=== PATIENT | male | born 1955 | race Caucasian/White ===

== ENCOUNTER 2018-03-14 10:19 | Emergency (ER) | payer OTHER, SELFPAY ==
[2018-03-14 10:20] VITALS: BP 92/62; PULSE 88; RESP 18; TEMP 36.4; O2SAT 95; BMI 29.8
--- NOTE | 2018-03-14 10:26 | ED.RN ---
PT REFUSES CT SCAN. TALKED WITH DR MARTIN . ATTEMPTED TO ORDER CT SCAN. PT REFUSES. STATING HE IS CLAUSTROPHOBIC
--- NOTE | 2018-03-14 11:53 | ED.DCSUM_ITS ---
- ER Visit Summary Date of Service: 03/14/18 Chief Complaint: Fall History of Present Illness: The patient is a 62 M who states that he tripped and fell over his dog at 2 AM this morning. He has a laceration to the right upper forehead. He also has a skin tear to the left hand. Patient denies loss of consciousness but does admit to being drunk at the time. He denies headache or vision change. Patient is on Plavix and aspirin. Tetanus is up-to-date. Physical Examination: Vital signs reveal blood pressure 92/62, otherwise unremarkable. Patient sitting upright in bed no acute distress. He is alert and talkative. Head neck examination reveals a 3 cm laceration to the right forehead with an underlying hematoma. Pupils are equal and reactive. C-spine is nontender. Heart is regular rate and rhythm. Lung sounds are clear. Abdomen is soft nontender. Extremity examination reveals a 3 similar skin tear to the left hand without underlying bony tenderness. Neuro exam is normal. Test Results: Patient refused CT scan of the head area to severe claustrophobia. We discussed risks of not performing CT scan and he understands that at this time we cannot rule out intracranial bleeding or other injury. Emergency Department Course and Treatment: Forehead laceration was anesthetized with 2 cc of 1% lidocaine. Wound was cleansed. Skin was closed with 5 simple interrupted sutures of 5-0 nylon. The left hand skin tear was cleansed and closed with a Steri-Strip. Treatment Plan: [] Disposition: Discharge Impression: 1. Mechanical fall 2. Forehead laceration status post suture 3. Skin tear left hand This note was generated with [employer] dictation software. It may contain incorrect words, spelling, and punctuation that were not noted in review of the chart prior to signing ED Disposition - Plan for ED Patient: Disposition: Home or Assisted Living Chief Complaint: Fall Instructions: ED Mechanical Fall, ED Laceration Facial Sutr Tape Referrals: [facility] Doctor,Out of [Primary Care Provider] - 7 Days for suture removal
--- NOTE | 2018-07-05 | EGD_PTH ---
PATIENT: LOLI FELIPE LOC: ED U#:[id number] AGE/SX: 62/M ROOM: RE03/14/[address]: Dr. Lulu Marshall MD : 1955 BED: DIS: 03/14/2018 SPEC #: [id number] RECD: 07/06/18 12:04 STATUS: DORI PA #: [id number] MACRINA: 07/05/18 00:[address]: Solitario Conde DEPT: SURGICAL PATHOLOGY RECD BY: Tanya Fong ENTERED: 07/07/18 09:18 SP TYPE: EGD BIOPSY OTHR DR: Dr. Lulu Marshall MD Out of [facility] Doctor Tissues: Esophageal mucous membrane Procedures: Surgery Specimen Level IV HEADER OPERATION: EGD PRE-OP DIAGNOSIS: Malignant neoplasm of lower third of esophagus TISSUE SUBMITTED: Biopsy of esophageal cancer MICROSCOPIC DIAGNOSIS Esophageal cancer, biopsy: Invasive well to moderately differentiated adenocarcinoma. AM:mckenna 07/07/18 COMMENT Immunohistochemistry ([id number]) supports the above diagnosis. Case has been reviewed in consultation with Dr. Contreras who concurs with the above diagnosis. IDC:CARLO MICROSCOPIC DESCRIPTION Slides are reviewed. GROSS DESCRIPTION Received in fixative is one container labeled with the patient's name and designated biopsy of esophageal cancer. The specimen consists of one irregular fragment of light reyes soft tissue that measures 0.3 x 0.2 x 0.1 cm. The specimen is totally submitted in one cassette. / CARLO:mckenna 07/06/18 TC:0 CPT: 82290
--- NOTE | 2018-07-05 | IMM_PTH ---
PATIENT: LOLI FELIPE LOC: ED U#:[id number] AGE/SX: 62/M ROOM: RE03/14/[address]: Dr. Lulu Marshall MD : 1955 BED: DIS: 03/14/2018 SPEC #: [id number] RECD: 07/07/18 14:33 STATUS: DORI REQ #: [id number] MACRINA: 07/05/18 00:[address]: Solitario Conde DEPT: IMMUNOHISTOCHEMISTRY RECD BY: Tanya Fong ENTERED: 07/07/18 14:38 SP TYPE: IMMUNO OTHR DR: Dr. Lulu Marshall MD Out of [facility] Doctor Tissues: Esophagus, NOS Procedures: MSH2 (add) MLH-1 (add) MSH6 (add) Anti-PMS2 (add) CK20 (add) CK7 (add) WELLS-2 (add) HER2 WINIFRED (add) KI-67 (add) P53 (add) 34BE12 (add) Pankeratin (initial) Comments: @ Ordering doctor for MSH2. edited from to @ by RGOOD at 07/07/18 1443 @ Ordering doctor for MLH1. edited from to @ by RGOOD at 07/07/18 1443 @ Ordering doctor for MSH6. edited from to @ by RGOOD at 07/07/18 1443 @ Ordering doctor for PMS2. edited from to @ by RGOOD at 07/07/18 1443 @ Ordering doctor for CK20. edited from to @ by RGOOD at 07/07/18 1443 @ Ordering doctor for CK7. edited from to @ by RGOOD at 07/07/18 1443 @ Ordering doctor for WELLS-2. edited from to DR.NGOLDE Lujan by RGOOD at 07/07/18 1443 @ Ordering doctor for HER2. edited from to DR.NGOLDE Lujan by RGOOD at 07/07/18 1443 @ Ordering doctor for KI67. edited from to DR.NGOLDE Lujan by RGOOD at 07/07/18 1443 @ Ordering doctor for P53. edited from to DR.NGOLDE Lujan by RGOOD at 07/07/18 1443 @ Ordering doctor for 34BE12. edited from to DR.NGOLDE Lujan by RGOOD at 07/07/18 1443 @ Ordering doctor for PANK edited from to DR.NGOLDE Lujan by RGOOD at 07/07/18 1443 @ Submitting doctor edited from to DR.NGOLDE Lujan by RGOOD at 07/07/18 1443 PHYSICIAN & [place] [id number] SPECIMEN INFORMATION: Tissue Source: Biopsy of esophageal cancer Clinical Info: Malignant neoplasm of lower third of esophagus Specimen Number: [id number] CPT code: 18472, 58641 x11 METHODOLOGY: Deparaffinized sections of prefer/formalin-fixed tissue or PAP/DQ stained slides are incubated with monoclonal/polyclonal antibodies/oligonucleotide probes. Localization is made via biotin free immunoperoxidase method. Appropriate controls are performed and reacted as expected. Results on target cell population are indicated in the following table: RESULTS: ANTIBODY / CLONE RESULT AE1-3 (AE1/AE3/PCK26) positive 34BE12 (34BE12) positive CK7 (OV-TL12/30) positive CK20 (KS20.8) positive Ki-67 (30-9) positive, high P53 (DO-7) positive, moderate (>50%) MSH2 (25D12) positive MSH6 (44) positive MLH-1 (M1) positive PMS2 (NKM9566) positive WELLS-2 (SP21) positive Her-2neu (CB11) positive (3+) These tests were developed and their performance characteristics determined by [facility]. They may not have been cleared or approved by the U.S. Food and Drug Administration. The FDA has determined that such clearance or approval is not necessary. INTERPRETATION: Biopsy of esophageal cancer: Invasive adenocarcinoma. Result of Microsatellite Instability Study: Negative (no loss of mismatch protein; no microsatellite instability detected). AM:mckenna 07/09/18
== END 2018-03-14 12:20 | disposition home or self-care (01) ==
LOC: ED 12:00
PROVIDERS: Emergency Provider Emergency Medicine
DX: S61.412A Laceration without foreign body of left hand, initial encounter (principal); S01.81XA Laceration without foreign body of other part of head, initial encounter; W01.0XXA Fall on same level from slipping, tripping and stumbling without subsequent striking against object, initial encounter; Y93.9 Activity, unspecified; Y92.9 Unspecified place or not applicable; I25.10 Atherosclerotic heart disease of native coronary artery without angina pectoris; I25.2 Old myocardial infarction; J44.9 Chronic obstructive pulmonary disease, unspecified; E11.9 Type 2 diabetes mellitus without complications; Z86.39 Personal history of other endocrine, nutritional and metabolic disease; Z86.79 Personal history of other diseases of the circulatory system; Z79.02 Long term (current) use of antithrombotics/antiplatelets; Z79.84 Long term (current) use of oral hypoglycemic drugs; Z79.82 Long term (current) use of aspirin; Z79.899 Other long term (current) drug therapy; Z72.0 Tobacco use
CPT/HCPCS: 12002; 88305; 88341; 88342; 99283

== ENCOUNTER → 2018-09-24 09:00 | Outpatient (CLI) | payer OTHER, SELFPAY ==
--- NOTE | 2018-09-24 | IMM_PTH ---
PATIENT: LOLI FELIPE LOC: [facility] U#:[id number] AGE/SX: 70/M ROOM: RE09/24/[address]: Dr. Terrance Jurado MD : 1955 BED: DIS: SPEC #: [id number] RECD: 09/27/18 10:09 STATUS: DORI REAlyssa #: [id number] MACRINA: 09/24/18 00:[address]: Terrance Jurado DEPT: IMMUNOHISTOCHEMISTRY RECD BY: Tanya Fong ENTERED: 09/27/18 10:10 SP TYPE: IMMUNO OTHR DR: Out of Town Doctor Tissues: A - Stomach, NOS Procedures: H Pylori (initial) PHYSICIAN & INSTITUTION [place] [id number] SPECIMEN INFORMATION: Tissue Source: A - Antral biopsy Clinical Info: C16.0 Specimen Number: [id number] CPT code: 38872 METHODOLOGY: Deparaffinized sections of prefer/formalin-fixed tissue or PAP/DQ stained slides are incubated with monoclonal/polyclonal antibodies/oligonucleotide probes. Localization is made via biotin free immunoperoxidase method. Appropriate controls are performed and reacted as expected. Results on target cell population are indicated in the following table: RESULTS: ANTIBODY / CLONE RESULT Block A H Pylori (polyclonal) negative These tests were developed and their performance characteristics determined by [facility]. They may not have been cleared or approved by the U.S. Food and Drug Administration. The FDA has determined that such clearance or approval is not necessary. INTERPRETATION: A. Antral biopsy: Negative for Helicobacter pylori organisms. AM:mckenna 09/28/18
--- NOTE | 2018-09-24 09:00 | EGD_PTH ---
PATIENT: LOLI FELIPE LOC: [facility] U#:[id number] AGE/SX: 70/M ROOM: RE09/24/[address]: Dr. Terrance Jurado MD : 1955 BED: DIS: SPEC #: [id number] RECD: 09/24/18 16:42 STATUS: DORI PA #: [id number] MACRINA: 09/24/18 09:[address]: Terrance Jurado DEPT: SURGICAL PATHOLOGY RECD BY: Eduardo Nogueira ENTERED: 09/27/18 08:30 SP TYPE: EGD BIOPSY OTHR DR: Out of [facility] Doctor Tissues: A - Gastric mucous membrane B - Esophageal mucous membrane Procedures: Special Stain Group I Surgery Specimen Level IV GMS Stain (control) HEADER OPERATION: Biopsy PRE-OP DIAGNOSIS: C16.0 TISSUE SUBMITTED: A - Antral biopsy H/H, B - Esophageal biopsy MICROSCOPIC DIAGNOSIS A. Gastric antrum, biopsy: Mild chronic gastritis. B. Esophagus, biopsy: Detached fragments of reactive glandular mucosa. 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 See comment. AM:mckenna 09/28/18 COMMENT A. The results of immunohistochemistry for Helicobacter pylori will be reported separately ([id number]). B. GMS stain with matched control supports the above diagnosis. Case has been reviewed in consultation with Dr. Contreras who concurs with the above diagnosis. IDC:SJ MICROSCOPIC DESCRIPTION Slides are reviewed. GROSS DESCRIPTION A - Received in fixative is one container labeled with the patient's name and designated antral biopsy. The specimen consists of one irregular fragment of light reyes soft tissue that measures 0.4 x 0.3 x 0.1 cm. The specimen is totally submitted in one cassette. B - Received in fixative is one container labeled with the patient's name and designated esophageal biopsy. The specimen consists of one irregular fragment of light reyes soft tissue that measures 0.3 x 0.2 x 0.1 cm. The specimen is totally submitted in one cassette. Also present in the container is a minute fragment of reyes soft tissue measuring 0.1 cm in greatest dimension. / SJ:mckenna 09/27/18 TC:2 CPT: 14324 x2, 78099
== END ==
PROVIDERS: Referring Provider Surgery; Visit Provider Surgery
DX: K29.50 Unspecified chronic gastritis without bleeding (principal)
CPT/HCPCS: 88305; 88312; 88342